=== PATIENT | male | born 2000 | race Caucasian/White ===

== ENCOUNTER 2023-04-01 06:24 | Inpatient (IN) | payer MEDICAID ==
[2023-04-01] VITALS (38 sets, daily range): BP systolic 96–170; BP diastolic 45–101
[~2023-04-01] VITALS: Ht 177.8 cm; Wt 86.2 kg
[2023-04-01] MEDS ORDERED: SODIUM CHLORIDE 0.9% 1,000 ML IV ONE ×2 (06:30→10:30)
[2023-04-01 07:23] LABS: CHLORIDE 104 mEq/L (98-107)
[2023-04-01 07:24] LABS: BASOPHILS % 0.4 % (0.0-2.0); HEMATOCRIT. 48.3 % (42.0-52.0); HEMOGLOBIN. 16.1 g/dL (14.0-18.0); LYMPHOCYTES % 11.7 % (20.0-50.0); MEAN CORPUSCULAR HEMOGLOBIN 26.1 pg (28.0-32.0); MEAN CORPUSCULAR VOLUME 78.2 fL (80.0-94.0); MEAN PLATELET VOLUME 10.7 fl (7.4-10.4); MONOCYTES % 8.3 % (2.0-8.0); NEUTROPHILS % 79.6 % (40.0-76.0); PLATELET 200 x1000/uL (130-400); RED BLOOD CELL COUNT 6.18 mill/uL (4.7-6.1); RED CELL DISTRIBUTION WIDTH 16.3 % (11.6-14.6)
[2023-04-01 07:36] LABS: BETA HYDROXYBUTYRATE 8.3 mMol/L (0.0-0.3)
[2023-04-01] MEDS ORDERED: INSULIN REGULAR 100U/100ML PMX 100 ML IV SCH ×2 (08:30→08:45)
[2023-04-01 08:41] LABS: BG BASE EXCESS -23.7 mmol/L (-2.0-2.0); BG CARBOXYHEMOGLOBIN 0.6 % (0.5-1.5); BG DEOXYHEMOGLOBIN 1.1 % (0.0-5.0); BG FRACTION INSPIRED OXYGEN 21; BG METHEMOGLOBIN 0.5 % (0.0-1.5); BG OXYGEN SATURATION 98.9 % (92.0-98.5); BG OXYHEMOGLOBIN 97.8 % (94.0-97.0); BG PCO2 9.4 mmHg (35.0-45.0); BG PH 7.115 (7.350-7.450); BG PO2 141.2 mmHg (75.0-100.0); BG SAMPLE SITE LEFT RADIAL; BG VENT MODE ROOM AIR
[2023-04-01] MEDS ORDERED: MORPHINE SULFATE 4 MG/ML CPJ (NOT FOR IM USE) IV ONE (10:30)
[2023-04-01] MEDS: DEXT 5%/0.45% NACL 1000ML 1,000 ML IV SCH ×2 (13:28→20:25)
[2023-04-01 14:29] LABS: CHLORIDE 114 mEq/L (98-107)
[2023-04-01] MEDS ORDERED: DEXTROSE 50% WATER 50ML SYRINGE IV PRN (16:15)
[2023-04-01] MEDS ORDERED: INSULIN REGULAR (DRIP) 100 UNITS in SODIUM CHLORIDE 0.9% 99 ML IV SCH (16:15)
[2023-04-01] MEDS: BLOOD SUGAR DIAGNOSTIC STRIP TEST SCH ×8 (16:31→23:19)
[2023-04-01] MEDS: INSULIN REGULAR 100U/100ML PMX 100 ML IV SCH (16:42)
[2023-04-01 18:32] LABS: CHLORIDE 114 mEq/L (98-107)
[2023-04-01] MEDS ORDERED: POTASSIUM CHLORIDE 20MEQ TABLET SR PO NR ×2 (19:00→21:00)
[2023-04-01] MEDS ORDERED: POTASSIUM CHLORIDE INJ 40 MEQ in DEXT 5% WATER 500 ML IV NR (20:00)
[2023-04-01] MEDS: AMLODIPINE 5MG TABLET PO SCH (22:25)
[2023-04-01 22:57] LABS: *AMPHETAMINES SCREEN URINE NEGATIVE (NEGATIVE); *BARBITURATES SCREEN URINE NEGATIVE (NEGATIVE); *BENZODIAZEPINES SCREEN URINE NEGATIVE (NEGATIVE); *COCAINE SCREEN URINE NEGATIVE (NEGATIVE); CANNABINOID URINE SCREEN NEGATIVE (NEGATIVE); METHADONE URINE SCREEN NEGATIVE (NEGATIVE); OPIATES URINE SCREEN PRESUMTIVE POSITIVE (NEGATIVE); PHENCYCLIDINE URINE SCREEN NEGATIVE (NEGATIVE)
[2023-04-01 23:01] LABS: CHLORIDE 112 mEq/L (98-107)
[2023-04-01 23:22] LABS: PHOSPHORUS 0.5 mg/dL (2.5-4.9)
[2023-04-02] VITALS (97 sets, daily range): BP systolic 102–199; BP diastolic 50–119
[2023-04-02] MEDS ORDERED: POTASSIUM PHOS,M-BASIC-D-BASIC 15 MMOL in DEXT 5% WATER 245 ML IV NR (00:30)
[2023-04-02] MEDS: BLOOD SUGAR DIAGNOSTIC STRIP TEST SCH ×15 (00:50→23:04)
[2023-04-02] MEDS ORDERED: POTASSIUM CHLORIDE INJ 60 MEQ in DEXT 5% WATER 500 ML IV NR (01:30)
[2023-04-02] MEDS: INSULIN REGULAR 100U/100ML PMX 100 ML IV SCH ×2 (03:35→21:04)
[2023-04-02] MEDS: DEXT 5%/0.45% NACL 1000ML 1,000 ML IV SCH ×2 (03:36→21:03)
[2023-04-02 05:45] LABS: HEMATOCRIT. 42.7 % (42.0-52.0); HEMOGLOBIN. 14.2 g/dL (14.0-18.0); MEAN CORPUSCULAR HEMOGLOBIN 25.6 pg (28.0-32.0); MEAN CORPUSCULAR VOLUME 76.8 fL (80.0-94.0); MEAN PLATELET VOLUME 10.5 fl (7.4-10.4); PLATELET 166 x1000/uL (130-400); RED BLOOD CELL COUNT 5.55 mill/uL (4.7-6.1); RED CELL DISTRIBUTION WIDTH 15.9 % (11.6-14.6)
[2023-04-02 06:05] LABS: CHLORIDE 110 mEq/L (98-107)
[2023-04-02 07:25] LABS: PLATELET ESTIMATE NORMAL
[2023-04-02 07:58] LABS: BG BASE EXCESS -17.5 mmol/L (-2.0-2.0); BG CARBOXYHEMOGLOBIN 0.8 % (0.5-1.5); BG DEOXYHEMOGLOBIN 4.5 % (0.0-5.0); BG HCO3 ACT 9.9 mmol/L (22.0-26.0); BG METHEMOGLOBIN 0.3 % (0.0-1.5); BG OXYGEN SATURATION 95.4 % (92.0-98.5); BG OXYHEMOGLOBIN 94.4 % (94.0-97.0); BG PCO2 29.4 mmHg (35.0-45.0); BG PH 7.147 (7.350-7.450); BG PO2 76.2 mmHg (75.0-100.0); BG SAMPLE SITE RIGHT BRACHIAL; BG TOTAL HEMOGLOBIN 15.7 g/dL (12.0-18.0); BG VENT MODE NASAL CANNULA
[2023-04-02] MEDS ORDERED: POTASSIUM CHLORIDE 20MEQ/PACKET PO SCH (08:00)
[2023-04-02] MEDS ORDERED: DEXT 5%/0.45% NACL KCL 20MEQ/L 1,000 ML IV SCH (08:00)
[2023-04-02] MEDS ORDERED: LORAZEPAM 2MG/ML CPJ IV PRN (08:00)
[2023-04-02] MEDS: AMLODIPINE 5MG TABLET PO SCH (08:07)
[2023-04-02] MEDS: PANTOPRAZOLE SODIUM 40 MG/VIAL IV SCH (08:07)
[2023-04-02] MEDS: POTASSIUM CHLORIDE 20MEQ TABLET SR PO SCH ×4 (08:07→18:31)
[2023-04-02 08:21] LABS: CHLORIDE 110 mEq/L (98-107)
[2023-04-02] MEDS ORDERED: DILTIAZEM HCL 125 MG in DEXT 5% WATER 100 ML IV PRN ×2 (09:00→09:30)
[2023-04-02] MEDS ORDERED: AMLODIPINE 5MG TABLET PO SCH (09:00)
[2023-04-02] MEDS ORDERED: POTASSIUM CHLORIDE INJ 40 MEQ in DEXT 5% WATER 250 ML IV NR (09:00)
[2023-04-02] MEDS ORDERED: MAGNESIUM 1 G PREMIX 100 ML IV NR (10:30)
[2023-04-02 11:16] LABS: PHOSPHORUS 0.4 mg/dL (2.5-4.9)
[2023-04-02 11:43] LABS: CHLORIDE 106 mEq/L (98-107)
[2023-04-02] MEDS: ENOXAPARIN 40MG/0.4ML SYR SUBCUT SCH (12:53)
[2023-04-02] MEDS ORDERED: SODIUM CHLORIDE 0.9% 1,000 ML IV SCH (13:00)
[2023-04-02] MEDS ORDERED: POTASSIUM PHOS,M-BASIC-D-BASIC 20 MMOL in DEXT 5% WATER 243.3333 ML IV NR (13:00)
[2023-04-02] MEDS: PIPERACILLIN/TAZOBACTAM 3.375 G in DEXTROSE 5% WATER 50 ML IV SCH ×2 (13:32→21:04)
[2023-04-02] MEDS ORDERED: ZOLPIDEM TARTRATE 5MG TABLET PO PRN ×2 (14:30)
[2023-04-02] MEDS: SODIUM CHL 0.9% + KCL 20MEQ/L 1,000 ML IV SCH ×2 (14:31→18:31)
[2023-04-02 16:33] LABS: CHLORIDE 108 mEq/L (98-107)
[2023-04-02 19:47] LABS: CHLORIDE 112 mEq/L (98-107)
[2023-04-02] MEDS ORDERED: INSULIN REGULAR (DRIP) 100 UNITS in SODIUM CHLORIDE 0.9% 99 ML IV PRN (20:30)
[2023-04-02 23:50] LABS: CHLORIDE 115 mEq/L (98-107)
[2023-04-03] VITALS (93 sets, daily range): BP systolic 90–145; BP diastolic 46–84
[2023-04-03] MEDS: BLOOD SUGAR DIAGNOSTIC STRIP TEST SCH ×24 (00:05→23:15)
[2023-04-03] MEDS ORDERED: POTASSIUM CHLORIDE INJ 40 MEQ in DEXT 5% WATER 250 ML IV ONE ×2 (01:00→12:00)
[2023-04-03] MEDS: KCL 20MEQ/100ML X 2 FOR TOTAL KCL 40MEQ/200ML IV SCH ×2 (02:33→05:26)
[2023-04-03 04:40] LABS: CHLORIDE 114 mEq/L (98-107)
[2023-04-03 05:14] LABS: PHOSPHORUS 0.3 mg/dL (2.5-4.9)
[2023-04-03] MEDS: DEXT 5%/0.45% NACL 1000ML 1,000 ML IV SCH ×3 (05:26→20:00)
[2023-04-03] MEDS: INSULIN REGULAR 100U/100ML PMX 100 ML IV SCH ×2 (05:27→18:48)
[2023-04-03] MEDS ORDERED: POTASSIUM CHLORIDE 20MEQ TABLET SR PO NR (05:45)
[2023-04-03] MEDS ORDERED: ONDANSETRON HCL 4MG/2ML INJ IV PRN (06:00)
[2023-04-03] MEDS ORDERED: KCL 20MEQ/100ML PREMIX 100 ML IV SCH ×2 (06:00→09:00)
[2023-04-03] MEDS: PIPERACILLIN/TAZOBACTAM 3.375 G in DEXTROSE 5% WATER 50 ML IV SCH ×3 (06:03→22:46)
[2023-04-03] MEDS ORDERED: POTASSIUM PHOS,M-BASIC-D-BASIC 15 MMOL in DEXT 5% WATER 245 ML IV SCH (08:00)
[2023-04-03] MEDS: PANTOPRAZOLE SODIUM 40 MG/VIAL IV SCH (08:25)
[2023-04-03] MEDS: ENOXAPARIN 40MG/0.4ML SYR SUBCUT SCH (08:26)
[2023-04-03 09:43] LABS: CHLORIDE 117 mEq/L (98-107)
[2023-04-03 13:43] LABS: CHLORIDE 111 mEq/L (98-107)
[2023-04-03 17:00] LABS: CHLORIDE 110 mEq/L (98-107)
[2023-04-03] MEDS ORDERED: POTASSIUM CHLORIDE 20MEQ/PACKET PO NR (17:30)
[2023-04-03] MEDS: POTASSIUM-SODIUM PHOSPHATE POWDER PACKET PO SCH (17:45)
[2023-04-03] MEDS: KCL 20MEQ/100ML PREMIX 100 ML IV SCH ×2 (18:40→20:53)
[2023-04-03 21:55] LABS: CHLORIDE 112 mEq/L (98-107)
[2023-04-03] MEDS ORDERED: ACETAMINOPHEN 500MG TABLET PO PRN (23:30)
[2023-04-03] MEDS ORDERED: HYDROCODONE/ACETAMINOPHEN 5/325MG TABLET PO PRN (23:30)
[2023-04-03] MEDS: ACETAMINOPHEN 325MG TABLET PO PRN (23:40)
[2023-04-04] VITALS (54 sets, daily range): BP systolic 104–165; BP diastolic 44–95
[2023-04-04] MEDS: BLOOD SUGAR DIAGNOSTIC STRIP TEST SCH ×12 (00:15→17:17)
[2023-04-04 01:11] LABS: CHLORIDE 107 mEq/L (98-107)
[2023-04-04] MEDS: KCL 20MEQ/100ML X 2 FOR TOTAL KCL 40MEQ/200ML IV SCH ×3 (03:00→10:28)
[2023-04-04] MEDS: DEXT 5%/0.45% NACL 1000ML 1,000 ML IV SCH (04:00)
[2023-04-04] MEDS: PIPERACILLIN/TAZOBACTAM 3.375 G in DEXTROSE 5% WATER 50 ML IV SCH ×2 (06:18→14:40)
[2023-04-04] MEDS: ACETAMINOPHEN 325MG TABLET PO PRN (06:18)
[2023-04-04] MEDS ORDERED: LIDOCAINE HCL 1% 30ML VIAL (10MG/ML) ONE (09:30)
[2023-04-04] MEDS: ENOXAPARIN 40MG/0.4ML SYR SUBCUT SCH (09:47)
[2023-04-04] MEDS: PANTOPRAZOLE SODIUM 40 MG/VIAL IV SCH (09:47)
[2023-04-04] MEDS: POTASSIUM-SODIUM PHOSPHATE POWDER PACKET PO SCH ×2 (09:47→17:30)
[2023-04-04] MEDS ORDERED: INSULIN GLARGINE 100 UNITS/ML SUBCUT NR (10:45)
[2023-04-04] MEDS ORDERED: DEXTROSE 50% WATER 50ML SYRINGE IV PRN (10:45)
[2023-04-04] MEDS ORDERED: POTASSIUM CHLORIDE INJ 40 MEQ in DEXT 5% WATER 250 ML IV NR (11:00)
[2023-04-04] MEDS: INSULIN LISPRO 100 UNITS/ML SUBCUT SCH ×2 (11:33→17:47)
[2023-04-04] MEDS ORDERED: INSU100I28 SQ (12:17)
[2023-04-04 12:42] LABS: PHOSPHORUS 1.1 mg/dL (2.5-4.9)
[2023-04-04] MEDS ORDERED: NALOXONE HCL 0.4MG/ML VIAL IV PRN (15:45)
[2023-04-04 19:39] LABS: CHLORIDE 102 mEq/L (98-107)
[2023-04-04] MEDS ORDERED: POTASSIUM CHLORIDE 20MEQ TABLET SR PO NR (20:00)
[2023-04-04] MEDS ORDERED: INSULIN GLARGINE 100 UNITS/ML SUBCUT SCH (22:00)
== END 2023-04-04 20:22 | disposition home or self-care (01) | DRG 420 ==
LOC: ER 06:24 → MICUSO 11:54 → EDBEDREQ 12:11 → MICUSO 04-03 19:55
PROVIDERS: ADMIT Internal Medicine; ATTEND Internal Medicine
PROC: 5A1935Z Respiratory Ventilation, Less than 24 Consecutive Hours (ICD-10-PCS; principal; 2023-04-01)
DX: E11.10 Type 2 diabetes mellitus with ketoacidosis without coma (principal); J96.00 Acute respiratory failure, unspecified whether with hypoxia or hypercapnia; G93.40 Encephalopathy, unspecified; E87.6 Hypokalemia; E87.1 Hypo-osmolality and hyponatremia; E78.00 Pure hypercholesterolemia, unspecified; I10 Essential (primary) hypertension; I47.1 Supraventricular tachycardia
CPT/HCPCS: 36415; 36573; 36600; 71045; 74176; 80048; 80053; 80305; 82010; 82375; 82805; 82962; 83036; 83735; 84100; 84145; 84484; 85025; 93005; 99291; C1725; C1893; C9113; J1650; J1815; J2060; J2270; J2405; J2543; J3475; J3480; J3490; J7030; J7050; J7060

== ENCOUNTER 2024-07-23 09:56 | Inpatient (IN) | payer SELFPAY ==
[~2024-07-23] VITALS: Ht 180.3 cm; Wt 92.5 kg
[~2024-07-23 09:56] MED LIST: INSU100I28 SQ
[2024-07-23 11:19] LABS: BASOPHILS % 0.8 % (0.0-2.0); DIFFERENTIAL COMMENT 0; HEMATOCRIT. 52.7 % (42.0-52.0); HEMOGLOBIN. 16.4 g/dL (14.0-18.0); LYMPHOCYTES % 9.6 % (20.0-50.0); MEAN CORPUSCULAR HEMOGLOBIN 24.9 pg (28.0-32.0); MEAN CORPUSCULAR HGB CONC 31.2 g/dL (31.0-37.0); MEAN CORPUSCULAR VOLUME 79.9 fL (80.0-94.0); MEAN PLATELET VOLUME 9.4 fl (7.4-10.4); NEUTROPHILS % 81.6 % (40.0-76.0); PLATELET 265 x1000/uL (130-400); RED BLOOD CELL COUNT 6.59 mill/uL (4.7-6.1); RED CELL DISTRIBUTION WIDTH 17.4 % (11.6-14.6); WHITE BLOOD COUNT 15.1 x1000/uL (4.5-11.0)
[2024-07-23 11:28] LABS: D-DIMER 0.32 mg/L FEU (<0.50); PROTHROMBIN TIME 10.9 sec (9.6-11.0)
[2024-07-23] MEDS: SODIUM CHLORIDE 0.9% 1,000 ML IV ONE ×2 (11:30)
[2024-07-23 11:38] LABS: CHLORIDE 101 mEq/L (98-107); SODIUM 130 mEq/L (136-145)
[2024-07-23 11:39] LABS: CALCIUM 10.3 mg/dL (8.7-10.4)
[2024-07-23 11:43] LABS: CREATININE 1.5 mg/dL (0.6-1.3)
[2024-07-23 11:44] LABS: GLUCOSE 259 mg/dL (70-105); UREA NITROGEN BLOOD 9 mg/dL (9-23)
[2024-07-23 11:46] LABS: BETA HYDROXYBUTYRATE 8.7 mMol/L (0.0-0.3)
[2024-07-23 11:56] LABS: ETHANOL BLOOD < 10 mg/dL (<10); TROPONIN I HIGH SENSITIVITY < 4 ng/L (3.0-53)
[2024-07-23 11:57] LABS: CARBON DIOXIDE < 10 mEq/L (21-32)
[2024-07-23 12:11] LABS: BG BASE EXCESS -20.7 mmol/L (-2.0-3.0); BG CARBOXYHEMOGLOBIN 0.1 % (0.5-1.5); BG DEOXYHEMOGLOBIN 1.6 % (0.0-5.0); BG FRACTION INSPIRED OXYGEN 21; BG HCO3 ACT 4.9 mmol/L (21.0-28.0); BG METHEMOGLOBIN 0.3 % (0.5-1.5); BG OXYGEN SATURATION 98.4 % (94.0-98.0); BG PCO2 13.8 mmHg (35.0-48.0); BG PO2 125.7 mmHg (83.0-108.0); BG SAMPLE SITE RIGHT RADIAL; BG TOTAL HEMOGLOBIN 17.5 g/dL (13.5-17.5); BG VENT MODE ROOM AIR
[2024-07-23] MEDS: BLOOD SUGAR DIAGNOSTIC STRIP TEST SCH ×2 (12:15→21:29)
[2024-07-23] MEDS ORDERED: BLOOD SUGAR DIAGNOSTIC STRIP TEST PRN ×2 (12:15→16:15)
[2024-07-23] MEDS ORDERED: INSULIN REGULAR 100U/100ML PMX 100 ML IV SCH ×2 (12:15→21:00)
[2024-07-23] MEDS: DEXT 5%/0.9% NACL 1,000 ML IV SCH (12:15)
[2024-07-23] MEDS ORDERED: DEXTROSE 50% WATER 50ML SYRINGE IV PRN ×3 (12:15→16:15)
[2024-07-23] MEDS ORDERED: SODIUM PHOSPHATE 15 MMOL in SODIUM CHLORIDE 0.9% 245 ML IV PRN (12:15)
[2024-07-23] MEDS: SODIUM CHLORIDE 0.9% 1,000 ML IV SCH (12:15)
[2024-07-23] MEDS ORDERED: POTASSIUM CHLORIDE 40 MEQ in SODIUM CHLORIDE 0.9% 230 ML IV PRN (12:15)
[2024-07-23] MEDS ORDERED: MAGNESIUM 2 G PREMIX 50 ML IV PRN (12:15)
[2024-07-23] MEDS: INSULIN REGULAR 100U/100ML PMX 100 ML IV SCH (13:00)
[2024-07-23 14:33] LABS: CLARITY URINE CLEAR (CLEAR); COLOR URINE YELLOW (YELLOW); GLUCOSE URINE 3+ (NEGATIVE); KETONES URINE 4+ (NEGATIVE); LEUKOCYTE ESTERASE URINE NEGATIVE (NEGATIVE); NITRITE URINE NEGATIVE (NEGATIVE); OCCULT BLOOD URINE 1+ (NEGATIVE); PH URINE 5.5 (4.5-8.0); PROTEIN URINE 1+ (NEGATIVE); SPECIFIC GRAVITY URINE 1.024 (1.005-1.030); UROBILINOGEN URINE 0.2 E.U./dL (0.2-1.0)
[2024-07-23 14:51] LABS: *AMPHETAMINES SCREEN URINE NEGATIVE (NEGATIVE); *BARBITURATES SCREEN URINE NEGATIVE (NEGATIVE); *BENZODIAZEPINES SCREEN URINE NEGATIVE (NEGATIVE); *COCAINE SCREEN URINE NEGATIVE (NEGATIVE); METHADONE URINE SCREEN NEGATIVE (NEGATIVE); OPIATES URINE SCREEN NEGATIVE (NEGATIVE)
[2024-07-23 14:52] LABS: CANNABINOID URINE SCREEN NEGATIVE (NEGATIVE); ECSTASY MDMA SCREEN URINE NEGATIVE (NEGATIVE); PHENCYCLIDINE URINE SCREEN NEGATIVE (NEGATIVE)
[2024-07-23 14:54] LABS: FINE GRANULAR CASTS URINE 0-5 /lpf
[2024-07-23 14:55] LABS: WBC URINE 0-2 /hpf (0-2)
[2024-07-23 14:56] LABS: RBC URINE 0-2 /hpf (0-2)
[2024-07-23 14:57] LABS: SQUAMOUS EPITHELIAL CELL URINE RARE /lpf (RARE/1+)
[2024-07-23 14:58] LABS: BACTERIA URINE NONE SEEN
[2024-07-23] MEDS ORDERED: ONDANSETRON HCL 4MG/2ML INJ IV PRN (15:00)
[2024-07-23] MEDS ORDERED: ACETAMINOPHEN 325MG TABLET PO PRN (15:00)
[2024-07-23] MEDS ORDERED: IPRATROPIUM/ALBUTEROL 0.5-3(2.5)MG/3ML NEB HHN PRN (15:00)
[2024-07-23 16:05] LABS: CHLORIDE 109 mEq/L (98-107); POTASSIUM 4.4 mEq/L (3.5-5.1); SODIUM 135 mEq/L (136-145)
[2024-07-23 16:06] LABS: CALCIUM 8.3 mg/dL (8.7-10.4)
[2024-07-23 16:11] LABS: CREATININE 1.1 mg/dL (0.6-1.3); GLUCOSE 158 mg/dL (70-105); IRON 78 ug/dL (65-175); UREA NITROGEN BLOOD 7 mg/dL (9-23)
[2024-07-23 16:13] LABS: PHOSPHORUS 1.7 mg/dL (2.5-4.9)
[2024-07-23 16:14] LABS: TOTAL IRON BINDING CAPACITY 357 ug/dl (250-425); TROPONIN I HIGH SENSITIVITY < 4 ng/L (3.0-53)
[2024-07-23 16:19] LABS: CARBON DIOXIDE < 10 mEq/L (21-32)
[2024-07-23] MEDS ORDERED: BLOOD SUGAR DIAGNOSTIC STRIP TEST SCH (17:00)
[2024-07-23 18:19] LABS: ALANINE AMINOTRANSFERASE 37 IU/L (10-49); ALBUMIN 4.6 g/dL (3.2-4.8); AMYLASE 34 IU/L (30-118); ASPARTATE AMINOTRANSFERASE 16 IU/L (<34); BILIRUBIN TOTAL 0.6 mg/dL (0.1-1.0); PROTEIN TOTAL 7.8 g/dL (6.0-8.3)
[2024-07-23] MEDS ORDERED: INSULIN LISPRO 100 UNITS/ML SUBCUT SCH (18:20)
[2024-07-23 18:45] LABS: BILIRUBIN DIRECT < 0.1 mg/dL (<=3.0)
[2024-07-23 21:00] LABS: PHOSPHORUS 1.1 mg/dL (2.5-4.9)
[2024-07-23 21:31] LABS: CHLORIDE 113 mEq/L (98-107); POTASSIUM 4.1 mEq/L (3.5-5.1); SODIUM 136 mEq/L (136-145)
[2024-07-23 21:33] LABS: CALCIUM 8.6 mg/dL (8.7-10.4)
[2024-07-23 21:38] LABS: GLUCOSE 155 mg/dL (70-105)
[2024-07-23 21:44] LABS: CARBON DIOXIDE < 10 mEq/L (21-32); UREA NITROGEN BLOOD < 5 mg/dL (9-23)
[2024-07-23] MEDS: SODIUM PHOSPHATE 30 MMOL in DEXT 5% WATER 500 ML IV NR (21:45)
[2024-07-23] MEDS: PANTOPRAZOLE SODIUM 40 MG/VIAL IV SCH (21:45)
[2024-07-23] MEDS: DEXT 5%/0.45% NACL 1000ML 1,000 ML IV SCH (21:46)
[2024-07-23] MEDS: MAGNESIUM 2 G PREMIX 50 ML IV NR (22:12)
[2024-07-23 23:24] VITALS: BP 133/85; PULSE 105; RESP 25; O2SAT 100
[2024-07-23 23:30] VITALS: BP 123/84; PULSE 99; RESP 26; TEMP 36.61404; TEMP 36.6404; O2SAT 100
[2024-07-23 23:36] LABS: CREATINE KINASE 111 IU/L (46-171)
[2024-07-23 23:37] LABS: TROPONIN I HIGH SENSITIVITY < 4 ng/L (3.0-53)
[2024-07-23 23:45] VITALS: BP 119/83; PULSE 105; RESP 19; O2SAT 98
[2024-07-24] VITALS (88 sets, daily range): BP systolic 94–134; BP diastolic 55–88; PULSE 75–114; RESP 0–29; TEMP 36.50292–37.00296; O2SAT 97–100
[2024-07-24 01:45] LABS: CHLORIDE 112 mEq/L (98-107); POTASSIUM 3.5 mEq/L (3.5-5.1); SODIUM 138 mEq/L (136-145)
[2024-07-24 01:46] LABS: CALCIUM 8.7 mg/dL (8.7-10.4); CARBON DIOXIDE 10 mEq/L (21-32)
[2024-07-24 01:51] LABS: CREATININE 0.9 mg/dL (0.6-1.3); GLUCOSE 156 mg/dL (70-105)
[2024-07-24 01:53] LABS: PHOSPHORUS 2.5 mg/dL (2.5-4.9)
[2024-07-24 01:56] LABS: UREA NITROGEN BLOOD < 5 mg/dL (9-23)
[2024-07-24] MEDS: KCL 20MEQ/100ML PREMIX 100 ML IV PRN (02:11)
[2024-07-24] MEDS: POTASSIUM CHLORIDE 20MEQ/PACKET PO NR (03:56)
[2024-07-24 05:54] LABS: CARBON DIOXIDE 12 mEq/L (21-32); CHLORIDE 112 mEq/L (98-107); POTASSIUM 4.3 mEq/L (3.5-5.1); SODIUM 139 mEq/L (136-145)
[2024-07-24 05:56] LABS: CALCIUM 8.9 mg/dL (8.7-10.4)
[2024-07-24 06:00] LABS: CREATINE KINASE MB FRACTION 0.7 ng/mL (0.5-3.6); CREATININE 0.8 mg/dL (0.6-1.3); GLUCOSE 140 mg/dL (70-105)
[2024-07-24 06:01] LABS: UREA NITROGEN BLOOD 6 mg/dL (9-23)
[2024-07-24 06:03] LABS: CREATINE KINASE 99 IU/L (46-171); PHOSPHORUS 2.3 mg/dL (2.5-4.9); T4 FREE 0.97 ng/dL (0.89-1.76)
[2024-07-24 06:04] LABS: THYROID STIMULATING HORMONE 0.31 uIU/mL (0.55-4.78)
[2024-07-24 06:05] LABS: TROPONIN I HIGH SENSITIVITY < 4 ng/L (3.0-53)
[2024-07-24 08:27] LABS: BASOPHILS % 0.6 % (0.0-2.0); DIFFERENTIAL COMMENT 0; EOSINOPHILS % 0.5 % (0.0-5.0); HEMATOCRIT. 42.2 % (42.0-52.0); HEMOGLOBIN. 13.7 g/dL (14.0-18.0); LYMPHOCYTES % 24.4 % (20.0-50.0); MEAN CORPUSCULAR HEMOGLOBIN 25.4 pg (28.0-32.0); MEAN CORPUSCULAR HGB CONC 32.5 g/dL (31.0-37.0); MEAN CORPUSCULAR VOLUME 78.3 fL (80.0-94.0); MEAN PLATELET VOLUME 9.1 fl (7.4-10.4); MONOCYTES % 14.3 % (2.0-8.0); NEUTROPHILS % 60.2 % (40.0-76.0); PLATELET 185 x1000/uL (130-400); RED BLOOD CELL COUNT 5.39 mill/uL (4.7-6.1); RED CELL DISTRIBUTION WIDTH 16.7 % (11.6-14.6); WHITE BLOOD COUNT 5.7 x1000/uL (4.5-11.0)
[2024-07-24 08:37] LABS: CARBON DIOXIDE 12 mEq/L (21-32); CHLORIDE 112 mEq/L (98-107); POTASSIUM 3.5 mEq/L (3.5-5.1); SODIUM 138 mEq/L (136-145)
[2024-07-24 08:44] LABS: PHOSPHORUS 1.6 mg/dL (2.5-4.9)
[2024-07-24] MEDS: POTASSIUM CHLORIDE 40 MEQ in DEXT 5% WATER 500 ML IV NR (11:29)
[2024-07-24 12:30] LABS: CHLORIDE 111 mEq/L (98-107); POTASSIUM 3.4 mEq/L (3.5-5.1); SODIUM 139 mEq/L (136-145)
[2024-07-24 12:31] LABS: CARBON DIOXIDE 15 mEq/L (21-32)
[2024-07-24 12:38] LABS: PHOSPHORUS 1.3 mg/dL (2.5-4.9)
[2024-07-24] MEDS: POTASSIUM PHOSPHATE 30 MMOL in DEXT 5% WATER 490 ML IV NR (16:06)
[2024-07-24] MEDS: INSULIN REGULAR 100U/100ML PMX 100 ML IV PRN (16:08)
[2024-07-24 16:42] LABS: CHLORIDE 111 mEq/L (98-107); POTASSIUM 3.7 mEq/L (3.5-5.1); SODIUM 137 mEq/L (136-145)
[2024-07-24 16:43] LABS: CALCIUM 8.7 mg/dL (8.7-10.4); CARBON DIOXIDE 15 mEq/L (21-32)
[2024-07-24 16:48] LABS: CREATININE 0.9 mg/dL (0.6-1.3); GLUCOSE 179 mg/dL (70-105)
[2024-07-24 16:50] LABS: PHOSPHORUS 1.2 mg/dL (2.5-4.9)
[2024-07-24 16:56] LABS: UREA NITROGEN BLOOD < 5 mg/dL (9-23)
[2024-07-24 20:45] LABS: CARBON DIOXIDE 15 mEq/L (21-32); CHLORIDE 111 mEq/L (98-107); POTASSIUM 3.3 mEq/L (3.5-5.1); SODIUM 138 mEq/L (136-145)
[2024-07-24 20:46] LABS: CALCIUM 8.6 mg/dL (8.7-10.4)
[2024-07-24 20:50] LABS: CREATININE 0.8 mg/dL (0.6-1.3)
[2024-07-24 20:51] LABS: GLUCOSE 180 mg/dL (70-105)
[2024-07-24 20:52] LABS: UREA NITROGEN BLOOD < 5 mg/dL (9-23)
[2024-07-24 20:53] LABS: PHOSPHORUS 2.2 mg/dL (2.5-4.9)
[2024-07-24] MEDS: INSULIN GLARGINE 100 UNITS/ML SUBCUT SCH (23:45)
[2024-07-24] MEDS: POTASSIUM CHLORIDE 20MEQ TABLET SR PO NR (23:45)
[2024-07-25] VITALS (28 sets, daily range): BP systolic 112–144; BP diastolic 70–94; PULSE 68–134; RESP 14–25; TEMP 36.9474–37.05852; O2SAT 96–99
[2024-07-25 01:00] LABS: CHLORIDE 110 mEq/L (98-107); POTASSIUM 3.1 mEq/L (3.5-5.1); SODIUM 137 mEq/L (136-145)
[2024-07-25 01:01] LABS: CALCIUM 8.7 mg/dL (8.7-10.4); CARBON DIOXIDE 17 mEq/L (21-32)
[2024-07-25 01:05] LABS: CREATININE 0.8 mg/dL (0.6-1.3)
[2024-07-25 01:06] LABS: GLUCOSE 170 mg/dL (70-105)
[2024-07-25] MEDS: SODIUM CHLORIDE 0.45% 1,000 ML IV ONE (01:16)
[2024-07-25 01:56] LABS: UREA NITROGEN BLOOD < 5 mg/dL (9-23)
[2024-07-25 05:45] LABS: CHLORIDE 110 mEq/L (98-107); POTASSIUM 3.2 mEq/L (3.5-5.1); SODIUM 139 mEq/L (136-145)
[2024-07-25 05:46] LABS: CALCIUM 9.1 mg/dL (8.7-10.4); CARBON DIOXIDE 17 mEq/L (21-32)
[2024-07-25 05:51] LABS: CREATININE 0.7 mg/dL (0.6-1.3); GLUCOSE 90 mg/dL (70-105)
[2024-07-25 05:58] LABS: UREA NITROGEN BLOOD < 5 mg/dL (9-23)
[2024-07-25] MEDS: BLOOD SUGAR DIAGNOSTIC STRIP TEST SCH (06:00)
[2024-07-25] MEDS: INSULIN LISPRO 100 UNITS/ML SUBCUT SCH (06:01)
[2024-07-25] MEDS ORDERED: KCL 20MEQ/100ML PREMIX 100 ML IV SCH (07:30)
[2024-07-25] MEDS: POTASSIUM CHLORIDE 20MEQ TABLET SR PO NR ×2 (08:04→11:59)
[2024-07-25] MEDS: SODIUM PHOSPHATE 10 MMOL in DEXT 5% WATER 246.6667 ML IV NR (10:40)
[2024-07-25 13:19] LABS: POTASSIUM 3.3 mEq/L (3.5-5.1)
[2024-07-25 14:12] LABS: BG BASE EXCESS -8.7 mmol/L (-2.0-3.0); BG CARBOXYHEMOGLOBIN 0.9 % (0.5-1.5); BG DEOXYHEMOGLOBIN 2.2 % (0.0-5.0); BG FRACTION INSPIRED OXYGEN 21; BG HCO3 ACT 15.2 mmol/L (21.0-28.0); BG OXYGEN SATURATION 97.8 % (94.0-98.0); BG OXYHEMOGLOBIN 96.9 % (94.0-98.0); BG PCO2 27.7 mmHg (35.0-48.0); BG PH 7.358 (7.350-7.450); BG PO2 95.1 mmHg (83.0-108.0); BG SAMPLE SITE RIGHT RADIAL; BG TOTAL HEMOGLOBIN 13.8 g/dL (13.5-17.5); BG VENT MODE ROOM AIR
[2024-07-25] MEDS: SODIUM CHLORIDE 0.9% 1,000 ML IV SCH (19:15)
[2024-07-26] VITALS: BP 128/70; PULSE 89; RESP 22; TEMP 36.89184; O2SAT 96
[2024-07-26 04:00] VITALS: BP 131/75; PULSE 82; RESP 20; TEMP 36.78072; O2SAT 97
[2024-07-26 06:20] LABS: BASOPHILS % 0.5 % (0.0-2.0); DIFFERENTIAL COMMENT 0; EOSINOPHILS % 1.7 % (0.0-5.0); HEMATOCRIT. 42.4 % (42.0-52.0); HEMOGLOBIN. 13.9 g/dL (14.0-18.0); LYMPHOCYTES % 37.8 % (20.0-50.0); MEAN CORPUSCULAR HEMOGLOBIN 25.1 pg (28.0-32.0); MEAN CORPUSCULAR HGB CONC 32.9 g/dL (31.0-37.0); MEAN CORPUSCULAR VOLUME 76.3 fL (80.0-94.0); MEAN PLATELET VOLUME 9.5 fl (7.4-10.4); MONOCYTES % 12.7 % (2.0-8.0); NEUTROPHILS % 47.3 % (40.0-76.0); PLATELET 182 x1000/uL (130-400); RED BLOOD CELL COUNT 5.55 mill/uL (4.7-6.1); RED CELL DISTRIBUTION WIDTH 16.7 % (11.6-14.6)
[2024-07-26 06:26] LABS: CHLORIDE 106 mEq/L (98-107); POTASSIUM 3.3 mEq/L (3.5-5.1); SODIUM 137 mEq/L (136-145)
[2024-07-26 06:27] LABS: CALCIUM 9.4 mg/dL (8.7-10.4); CARBON DIOXIDE 19 mEq/L (21-32)
[2024-07-26 06:32] LABS: CREATININE 0.6 mg/dL (0.6-1.3); GLUCOSE 109 mg/dL (70-105); UREA NITROGEN BLOOD 6 mg/dL (9-23)
[2024-07-26 06:34] LABS: PHOSPHORUS 3.2 mg/dL (2.5-4.9)
[2024-07-26 08:00] VITALS: BP_SYST 123; BP_SYST 124; BP_DIAS 78; BP_DIAS 81; PULSE 86; RESP 18; TEMP 36.50292; TEMP 36.61404; O2SAT 99
[2024-07-26] MEDS: POTASSIUM CHLORIDE 20MEQ TABLET SR PO NR (09:21)
[2024-07-26] MEDS: MAGNESIUM OXIDE 400MG TABLET PO SCH (09:21)
[2024-07-26 12:00] VITALS: BP 124/81; PULSE 86; RESP 18; TEMP 36.50292; O2SAT 99
[2024-07-26 13:44] VITALS: BP 124/81; PULSE 86; TEMP 97.7; O2SAT 99
[2024-07-26] MEDS ORDERED: FAMOTIDINE 20MG TABLET PO SCH (21:00)
== END 2024-07-26 16:50 | disposition home or self-care (01) | DRG 420 ==
LOC: ER 10:22 → EDBEDREQ 14:43 → MICUSO 23:33 → 7WST 07-25 13:30
PROVIDERS: ADMIT Hospitalist; ATTEND Hospitalist
DX: E10.10 Type 1 diabetes mellitus with ketoacidosis without coma (principal); N17.9 Acute kidney failure, unspecified; D50.9 Iron deficiency anemia, unspecified; E78.5 Hyperlipidemia, unspecified; D72.828 Other elevated white blood cell count; E86.0 Dehydration; Z20.822 Contact with and (suspected) exposure to COVID-19; M54.50 Low back pain, unspecified; E66.01 Morbid (severe) obesity due to excess calories; Z68.33 Body mass index [BMI] 33.0-33.9, adult; Z79.899 Other long term (current) drug therapy; Z83.3 Family history of diabetes mellitus; Z79.4 Long term (current) use of insulin
CPT/HCPCS: 36415; 36600; 71045; 80048; 80051; 80076; 80305; 80320; 81003; 82010; 82150; 82375; 82550; 82553; 82728; 82805; 82962; 83036; 83519; 83540; 83550; 83605; 83735; 83880; 83930; 84100; 84132; 84145; 84439; 84443; 84484; 85025; 85379; 86337; 87426; 93005; 99291; J1815; J2470; J3475; J3480; J3490; J7030; J7050; J7060; G0480